=== PATIENT | female | born 1980 | race African-American/Black ===

== ENCOUNTER 2018-02-28 20:02 | Emergency (ER) | payer MEDICAID ==
[~2018-02-28 20:02] MED LIST: AMLO10 PO; ASPI325T PO; ATOR40TA49 PO; CLOP75 PO; ENAL10 PO; HCTZ25 PO; IBUP600 PO; METO25 PO; NITR.4 SL
[2018-02-28 21:32] VITALS: BP 134/77; PULSE 92; RESP 16; TEMP 98.8; O2SAT 100
[2018-02-28] MEDS ORDERED: CEPHALEXIN MONOHYDRATE 500 MG CAP PO ONE (22:00)
[2018-02-28] MEDS ORDERED: SULFAMETHOXAZOLE-TRIMETHOPRIM DS 800-160 MG TAB PO ONE (22:00)
--- NOTE | 2018-02-28 22:06 | PD ---
HPI Chief Complaint: Lump, Cyst, Hernia Time Seen by Provider: 21:42 Travel History International Travel<30 days: No Contact w/Intl Traveler<30days: No Traveled to known affect area: No History of Present Illness HPI 37-year-old female presents to the emergency department evaluation of left breast pain and swelling that has occurred over the last day. Patient states that the breast is exquisitely painful and has noticed that her nipple has inverted. Says she may have some discharge that is white but is not sure. She says that the nipple just looks wet to her. Patient does not have a previous history of breast infections or abscesses. Says she does have an extensive family history of breast cancer. Her mother at 40 and her sister at 50 from breast cancer. Patient says she had a mammogram 2 years ago that was normal. Patient does not believe she is . She denies fever, chills. She denies any axillary or arm pain. Says she has a history of hypertension but does not member the medications that she takes. PFSH Past Medical History Heart Rhythm Problems: No Cancer: No Cardiovascular Problems: Yes (STENT ) High Cholesterol: Yes Chest Pain: Yes (on this admission) Cerebrovascular Accident: No Diminished Hearing: No Endocrine: No Gastrointestinal Disorders: Yes Genitourinary: No Hypertension: Yes Immune Disorder: No Musculoskeletal: No Neurologic: Yes Psychiatric: No Reproductive: No Respiratory: No Migraines: No Seizures: Yes (pre-eclampsia seizure) ?: Not : 2 Para: 2 Tubal Ligation: Yes Past Surgical History Abdominal Surgery: No Cardiac Surgery: No Section: Yes (x2) Ear Surgery: No Endocrine Surgery: No Eye Surgery: No Genitourinary Surgery: No Gynecologic Surgery: Yes ( section) Oral Surgery: No Thoracic Surgery: No Social History Alcohol Use: Yes (OCC, 1 WEEK AGO) Tobacco Use: No Substance Use: Yes (MARIJUANA) Allergies-Medications (Allergen,Severity, Reaction): Coded Allergies: No Known Allergies (Verified , 03/05/14) Reported Meds & Prescriptions Reported Meds & Active Scripts Active Keflex (Cephalexin) 500 Mg Cap 500 Mg PO Q8H 7 Days Bactrim DS (Sulfamethoxazole-Trimethoprim) 800-160 Mg Tab 1 Tab PO BID Plavix (Clopidogrel Bisulfate) 75 Mg Tab 75 Mg PO DAILY Nitroglycerin Tab 0.4 Mg Sl (Nitroglycerin) 0.4 Mg Subl 0.4 Mg SL DIRECTED Metoprolol Tartrate 25 mg (Metoprolol Tartrate) 25 Mg Tab 50 Mg PO BID 31 Days Hydrodiuril (Hydrochlorothiazide) 25 Mg Tab 25 Mg PO DAILY 31 Days Vasotec 10 Mg Tab (Enalapril Maleate) 10 Mg Tab 10 Mg PO BID 31 Days Plavix (Clopidogrel Bisulfate) 75 Mg Tab 75 Mg PO DAILY 31 Days Lipitor 40 Mg Tab (Atorvastatin Calcium) 40 Mg Tab 40 Mg PO HS 31 Days Aspirin 325 Mg Tab (Aspirin) 325 Mg Tab 325 Mg PO DAILY 31 Days Norvasc (Amlodipine Besylate) 10 Mg Tab 10 Mg PO DAILY 31 Days Motrin 600 Mg Tab (Ibuprofen) 600 Mg Tab 600 Mg PO Q6H PRN Review of Systems Except as stated in HPI: all other systems reviewed are Neg Physical Exam Narrative GENERAL: Well-developed, well-nourished in no apparent distress SKIN: Focused skin assessment warm/dry. Left breast-pendulous, area of erythema approximately 10 cm with tenderness palpation. No obvious fluctuance. Induration of approximately 7 cm. No fluid expression from nipple. It appears that the 6 o'clock position of the nipple is inverted. Again very tender to palpation. Left axillary lymphadenopathy scantly present HEAD: Atraumatic. Normocephalic. EYES: Pupils equal and round. No scleral icterus. No injection or drainage. NECK: Trachea midline. No JVD. CARDIOVASCULAR: Regular rate and rhythm. No murmur appreciated. RESPIRATORY: No accessory muscle use. Clear to auscultation. Breath sounds equal bilaterally. GASTROINTESTINAL: Abdomen soft, non-tender, nondistended. Hepatic and splenic margins not palpable. MUSCULOSKELETAL: No obvious deformities. No clubbing. No cyanosis. No edema. No CVA tenderness NEUROLOGICAL: Awake and alert. No obvious cranial nerve deficits. Motor grossly within normal limits. Normal speech. PSYCHIATRIC: Appropriate mood and affect; insight and judgment normal. Data Data Last Documented VS Vital Signs Date Time Temp Pulse Resp B/P (MAP) Pulse Ox O2 Delivery O2 Flow Rate FiO2 02/28/18 21:32 98.8 92 16 134/77 (96) 100 Orders Orders Cephalexin (Keflex) (02/28/18 22:00) Sulfamet-Trimeth Ds 800-160 Mg (Bactrim (02/28/18 22:00) Ed Urine Pregnancytest Poc (02/28/18 21:56) Us Soft Tissue (02/28/18 ) Mandatory Outpatient Referral (02/28/18 23:23) Ed Discharge Order (02/28/18 23:23) [facility] Medical Decision Making Medical Screen Exam Complete: Yes Emergency Medical Condition: Yes Differential Diagnosis Left breast mastitis, breast cancer, abscess, cellulitis Narrative Course 37-year-old female with an extensive family history of breast cancer presents emergency department for evaluation of left breast pain that is been present for approximately 1 day. Says she had a mammogram 2 years ago that was normal. Vital signs are stable. Physical exam findings consistent with cellulitis versus mastitis versus abscess. There is no obvious area for I&D. There is a concern that she has developed an infection. Will order left breast ultrasound to rule out abscess. Last Impressions Soft Tissue Ultrasound 02/28/18 0000 Signed Impressions: Service Date/Time: Friday, February 28, 2018 23:24 - CONCLUSION: Hypoechoic left retroareolar area. This likely represents a complex cystic mass such as an abscess. This may have thick fluid and hence why it is hypoechoic and not anechoic. This should be correlated clinically and followed until completely resolved. If the patient does not have clinical signs of an abscess, a mammogram and more formal evaluation would be recommended. Humza Dumas MD Patient needs a mammogram. Will administer Bactrim and Keflex in the emergency department. Rx for outpatient use. I explained the importance of follow up as discussed. General Surgery mandatory referral placed. Pt states understanding and will comply. Diagnosis Primary Impression: Breast mass Referrals: Primary Care Physician Patient Instructions: Breast Mass (ED), General Instructions Additional Instructions: Take all medications as prescribed. Follow-up with her primary care physician for further treatment and evaluation. If your symptoms persist or worsen return to the emergency department. Follow up with a general surgeon LAURI for follow up of your breast mass. Scripts Cephalexin (Keflex) 500 Mg Cap 500 MG PO Q8H for Infection for 7 Days, #21 CAP 0 Refills Prov: Tiera Gomez MD 02/28/18 Sulfamethoxazole-Trimethoprim (Bactrim DS) 800-160 Mg Tab 1 TAB PO BID for Infection, #14 TAB 0 Refills Prov: Tiera Gomez MD 02/28/18 Disposition: 01 DISCHARGE HOME Condition: Stable Shayy Mendes Feb 28, 2018 22:06
--- NOTE | 2018-02-28 23:13 | RADRPT ---
EXAM DATE/TIME: 02/28/2018 23:24 [facility] COMPARISON: No previous studies available for comparison. INDICATIONS : Left breast lump x 1 day. MEDICAL HISTORY : Cardiovascular disease. Hypercholesterolemia. SURGICAL HISTORY : Tubal ligation. section. ENCOUNTER: Initial ACUITY: 1 day PAIN SCORE: 7/10 LOCATION: Left breast. AREA EVALUATED: Left breast. FINDINGS: There is a 5.7 x 1.4 x 3.6 cm hypoechoic area seen in the left retroareolar region. This does have mi ld central cystic component. There is hyperemia in this region. Increased through-transmission is see n. CONCLUSION: Hypoechoic left retroareolar area. This likely represents a complex cystic mass such as an abscess. T his may have thick fluid and hence why it is hypoechoic and not anechoic. This should be correlated c linically and followed until completely resolved. If the patient does not have clinical signs of an a bscess, a mammogram and more formal evaluation would be recommended. Humza Dumas MD on February 28, 2018 at 23:07 Board Certified Radiologist. This report was verified electronically.
[2018-02-28] MEDS ORDERED: BACT800T5 PO (23:21)
[2018-02-28] MEDS ORDERED: CEPH-460 PO (23:21)
== END 2018-03-01 00:11 | disposition home or self-care (01) ==
LOC: NEPC 20:02
DX: N63.0 Unspecified lump in unspecified breast (principal); I10 Essential (primary) hypertension; E78.00 Pure hypercholesterolemia, unspecified; F12.90 Cannabis use, unspecified, uncomplicated; Z79.02 Long term (current) use of antithrombotics/antiplatelets; Z79.899 Other long term (current) drug therapy; Z86.69 Personal history of other diseases of the nervous system and sense organs; Z79.82 Long term (current) use of aspirin
CPT/HCPCS: 76999